=== PATIENT | female | born 1970 | race Caucasian/White ===

== ENCOUNTER 2020-05-06 05:58 | Day surgery (SDC) | payer MEDICAID, SELFPAY ==
[2020-05-01 14:33] LABS: CALCIUM 9.4 mg/dL (8.5-10.1); CARBON DIOXIDE 30.1 mmol/L (21-32); CHLORIDE SERUM 104 mmol/L (98-107); CREATININE SERUM 0.6 mg/dL (0.6-1.0); GFR1 > 60 mL/min; GLUCOSE SERUM 90 mg/dL (74-106); POTASSIUM SERUM 3.6 mmol/L (3.5-5.1); SODIUM SERUM 138 mmol/L (136-145)
[2020-05-01 14:39] LABS: BASOPHIL % 0.8 % (0-2); PLATELET COUNT 348 x10^3mcL (130-400); RED CELL DISTRIBUTION WIDTH 12.2 % (11.5-14.5)
[~2020-05-06] VITALS: Ht 152.4 cm; Wt 57.1 kg
[2020-05-06 06:36] VITALS: BP 135/83
[2020-05-06 10:28] VITALS: BP 130/71
== END 2020-05-06 11:00 | disposition home or self-care (01) ==
LOC: DS 05:58 → OR 07:30 → DS 11:00
PROVIDERS: ATTEND Urology
DX: N13.2 Hydronephrosis with renal and ureteral calculous obstruction (principal); R60.9 Edema, unspecified; Z20.828 Contact with and (suspected) exposure to other viral communicable diseases
CPT/HCPCS: C2625; J0696; J3010; Q9958; Q9967; U0003-CS